=== PATIENT | male | born 1990 | race Two or more races ===

== ENCOUNTER 2023-10-04 15:31 | Emergency (ER) | payer MEDICAID, OTHER ==
[~2023-10-04] VITALS: Ht 180.3 cm; Wt 91.2 kg
[2023-10-04 17:15] LABS: BASOPHILS # (AUTO) 0.1 K/uL (0.0-0.2); BASOPHILS % (AUTO) 0.8 % (0.0-2.0); EOSINOPHILS # (AUTO) 0.1 K/uL (0.0-0.7); EOSINOPHILS % (AUTO) 1.3 % (0.0-6.0); HEMATOCRIT 37 % (39-51); HEMOGLOBIN 12.1 g/dL (13.5-17.5); LYMPHOCYTES # (AUTO) 2.4 K/uL (0.8-4.8); LYMPHOCYTES % (AUTO) 31.6 % (20.0-44.0); MEAN CORPUSCULAR HEMOGLOBIN 29 PG (26.0-33.0); MEAN CORPUSCULAR HGB CONC 33 g/dl (31.0-36.0); MEAN CORPUSCULAR VOLUME 89 fL (80-96); MONOCYTES # (AUTO) 0.4 K/uL (0.1-1.30); MONOCYTES % (AUTO) 5.3 % (2.0-12.0); NEUTROPHILS # (AUTO) 4.6 K/uL (1.8-8.9); PLATELET COUNT (AUTO) 404 K/uL (150-450); RED BLOOD CELL COUNT(AUTO) 4.16 MIL/uL (4.5-6.0); RED CELL DISTRIBUTION WIDTH 16.7 % (11.5-15.0); WHITE BLOOD COUNT (AUTO) 7.5 K/uL (4.3-11.0)
[2023-10-04 17:51] LABS: CALCIUM, SERUM 8.6 mg/dL (8.5-10.1); CREATININE 0.8 mg/dL (0.6-1.3); POTASSIUM 3.3 mmol/L (3.5-5.1)
[2023-10-04 18:09] LABS: BILIRUBIN,DIRECT 0.1 mg/dL (0.0-0.2); BILIRUBIN,TOTAL 0.2 mg/dL (0.2-1.0); TOTAL PROTEIN, SERUM 6.5 g/dL (6.4-8.2)
[2023-10-04] MEDS ORDERED: CLIN300C12 PO (18:28)
[2023-10-04] MEDS ORDERED: CLINDAMYCIN HCL 150 MG CAPSULE ONE (18:46)
[2023-10-04] MEDS: CLINDAMYCIN HCL 150 MG CAPSULE PO ONE (18:51)
[2023-10-04 18:53] VITALS: BP 130/78; TEMP 98.8; O2SAT 100
== END 2023-10-04 18:53 | disposition home or self-care (01) ==
LOC: ER 15:40
DX: L03.90 Cellulitis, unspecified (principal); Z60.2 Problems related to living alone
CPT/HCPCS: 36415; 80048-TC; 80076-TC; 83690-TC; 85025-TC